=== PATIENT | male | born 1955 | race Caucasian/White ===

== ENCOUNTER 2018-05-08 07:43 | Emergency (ER) | payer OTHER ==
--- NOTE | 2018-05-08 07:48 | EDPHY ---
H & P Time Seen by Provider: 05/08/18 07:47 Constitutional: Initial Vital Signs Temperature (C) 36.5 C 05/08/18 07:49 Heart Rate 91 05/08/18 07:49 Respiratory Rate 18 05/08/18 07:49 Blood Pressure 125/71 H 05/08/18 07:49 O2 Sat (%) 96 05/08/18 07:49 O2 Delivery Mode Room Air Allergies/Adverse Reactions: Penicillins Allergy (Verified 05/08/18 07:55) Home Medications: Medication Instructions Recorded Anastrozole 05/08/18 Hydrochlorothiazide 12.5 mg PO 05/08/18 Lisinopril [Zestril 40 mg (*)] 40 mg PO DAILY 05/08/18 Medical Decision Making - Diagnostics Imaging: Discussed imaging studies w/ callisthenics instructor Radiologist, I viewed and interpreted images myself ED Course/Re-evaluation: CHIEF COMPLAINT: "I'm not feeling well" HISTORY OF PRESENT ILLNESS: The patient is a 63 y/o male arriving via EMS complaining of vague malaise for the last week or so. He is visiting from the [facility] and notes he has had minor intermittent headaches since arriving here. Around 02:00 this morning, 6 hours ago, he woke feeling lightheaded, weak "all over," and shaky "like my muscles don't have the strength to do what they need to do." He is reluctant to open his eyes during assessment and says he's tired but closing his eyes may help his [id number] dizziness and lightheadedness. He complains of an associated dry tongue and just generally feels "out of the ordinary." He denies fever, chills, dyspnea, cough, chest pain , chest pressure, abdominal pain, vomiting, diarrhea. Prehospital BGL was 215 and the patient denies eating this morning or any history of diabetes, though he is "on supplements to maintain my blood sugar level." No current flu vaccination. REVIEW OF SYSTEMS: A comprehensive 10 system review of systems is otherwise negative aside from elements mentioned in the history of present illness and medical decision making. PHYSICAL EXAM: HR, BP, O2 Sat, RR. Temp noted General Appearance: Alert, well hydrated, appropriate, and non-toxic appearing. Head: Atraumatic without scalp tenderness or obvious injury Eyes: Pupils equal, round, reactive to light and accommodation, EOMI, no trauma , no injection. Nose: Atraumatic, no rhinorrhea, clear. Throat: There is no erythema or exudates, no lesions, normal tonsils, mucus membranes moist. Neck: Supple, nontender, no lymphadenopathy. Respiratory: No retractions, no distress, no wheezes, and no accessory muscle use. Lungs are clear to auscultation bilaterally. Cardiovascular: Regular rate and rhythm, no murmurs, rubs, or gallops. Good capillary refill all extremities. Gastrointestinal: Abdomen is soft, nontender, non-distended, no masses, no rebound, no guarding, no peritoneal signs. Musculoskeletal: Normal active ROM of all extremities, atraumatic. Neurological: Alert, appropriate, and interactive. The patient has non-focal cranial nerves, motor, sensory, and cerebellar exam. Skin: No rashes, good turgor, no nodules on palpation. Past medical history: on supplements for BGL Past surgical history: noncontributory Family history: noncontributory Social history: From the [place] area. Is a army helicopter pilot and flew here. DIAGNOSTICS/PROCEDURES/CRITICAL CARE TIME: The 12 lead EKG was interpreted by myself. Sinus mechanism with left axis deviation. See hard copy and/or "tracemaster" electronic copy for interpretation. Brain MRI: negative for acute findings DIFFERENTIAL DIAGNOSIS: The differential diagnosis for the patient's symptoms included but was not limited to peripheral and central causes of vertigo, orthostatic causes including dehydration, cardiogenic and neurogenic causes, and blood loss. MEDICAL DECISION MAKING: This is a 63 y/o male who presents with a 1-week history of vague malaise that became more acute early this morning with lightheadedness, global weakness, and shakiness. He also describes some dizziness and is reluctant to open his eyes. Prehospital BGL was elevated at 215 and he denies history of diabetes though he is taking supplements to manage his BGL. Exam is nonfocal. Suspect vertigo or infection as most likely causes for his vague symptoms. Plan for IV, labs, EKG. WBC elevated at 13 with neutrophil shift, indicating likely infection. This could be causing his elevated BGL, which can also be contributing to his symptoms. He continues to feel poor on reassessment. Plan for 30mg IV Toradol, 4mg IV Zofran, 1L IV NS, 25mg PO Meclizine, and 10 unit insulin bolus. Reassessed patient. He feels improved, but still off. He says, "when I blink its brighter in the middle" and he feels he's "not my normal steady" when walking to the bathroom. Recommend brain MRI to further assess for cerebellar abnormality. Repeat BGL 123. Brain MRI is negative for acute findings. Flu swab negative. Reassessed patient and discussed findings. He appears much more comfortable than at initial presentation. I've not identified specifically what is causing his symptoms, but I suspect it's early signs of a viral illness. He feels comfortable being discharged at this time. Return precautions and follow up instructions discussed. - Data Points Laboratory Results: Laboratory Results 05/08/18 08:02 05/08/18 08:02 05/08/18 05/08/18 05/08/18 09:37 08:40 08:09 WBC RBC Hgb POC Hgb 16.7 gm/dL gm/dL (13.7-17.5) Hct POC Hct 49 % % (40-51) MCV MCH MCHC RDW Plt Count MPV Neut % (Auto) Lymph % (Auto) [place] % (Auto) Eos % (Auto) Baso % (Auto) Nucleat RBC Rel Count Absolute Neuts (auto) Absolute Lymphs (auto) Absolute Monos (auto) Absolute Eos (auto) Absolute Basos (auto) Absolute Nucleated RBC Immature Gran % Immature Gran # POC Sodium 143 mEq/L mEq/L (135-145) Sodium POC Potassium 3.4 mEq/L mEq/L (3.3-5.0) Potassium POC Chloride 104 mEq/L mEq/L (97-110) Chloride Carbon Dioxide Anion Gap POC BUN 23 mg/dL mg/dL (7-23) BUN Creatinine POC Creatinine 1.0 mg/dL mg/dL (0.7-1.3) Estimated GFR Glucose POC Glucose 123 mg/dL H mg/dL 197 mg/dL H mg/dL (70-100) (70-100) Calcium POC Troponin I Nasal Influenza A PCR NEGATIVE FOR FLU A (NEGATIVE) Nasal Influenza B PCR NEGATIVE FOR FLU B (NEGATIVE) 05/08/18 05/08/18 05/08/18 08:06 08:02 08:02 WBC 13.05 10^3/uL H 10^3/uL (3.80-9.50) RBC 5.22 10^6/uL 10^6/uL (4.40-6.38) Hgb 16.9 g/dL g/dL (13.7-17.5) POC Hgb Hct 46.4 % % (40.0-51.0) POC Hct MCV 88.9 fL fL (81.5-99.8) MCH 32.4 pg pg (27.9-34.1) MCHC 36.4 g/dL g/dL (32.4-36.7) RDW 13.5 % % (11.5-15.2) Plt Count 267 10^3/uL 10^3/uL (150-400) MPV 9.8 fL fL (8.7-11.7) Neut % (Auto) 88.5 % H % (39.3-74.2) Lymph % (Auto) 6.4 % L % (15.0-45.0) [place] % (Auto) 4.4 % L % (4.5-13.0) Eos % (Auto) 0.1 % L % (0.6-7.6) Baso % (Auto) 0.2 % L % (0.3-1.7) Nucleat RBC Rel Count 0.0 % % (0.0-0.2) Absolute Neuts (auto) 11.56 10^3/uL H 10^3/uL (1.70-6.50) Absolute Lymphs (auto) 0.83 10^3/uL L 10^3/uL (1.00-3.00) Absolute Monos (auto) 0.57 10^3/uL 10^3/uL (0.30-0.80) Absolute Eos (auto) 0.01 10^3/uL L 10^3/uL (0.03-0.40) Absolute Basos (auto) 0.03 10^3/uL 10^3/uL (0.02-0.10) Absolute Nucleated RBC 0.00 10^3/uL 10^3/uL (0-0.01) Immature Gran % 0.4 % % (0.0-1.1) Immature Gran # 0.05 10^3/uL 10^3/uL (0.00-0.10) POC Sodium Sodium 140 mEq/L mEq/L (135-145) POC Potassium Potassium 3.7 mEq/L mEq/L (3.3-5.0) POC Chloride Chloride 106 mEq/L mEq/L (97-110) Carbon Dioxide 22 mEq/l mEq/l (22-31) Anion Gap 12 mEq/L mEq/L (6-14) POC BUN BUN 24 mg/dL H mg/dL (7-23) Creatinine 0.9 mg/dL mg/dL (0.7-1.3) POC Creatinine Estimated GFR > 60 Glucose 195 mg/dL H mg/dL (70-100) POC Glucose Calcium 9.7 mg/dL mg/dL (8.5-10.4) POC Troponin I 0.03 ng/mL ng/mL (0.00-0.08) Nasal Influenza A PCR Nasal Influenza B PCR Medications Given: Discontinued Medications Sodium Chloride (Ns) 500 mls @ 0 mls/hr IV EDNOW ONE; Wide Open PRN Reason: Protocol Stop: 05/08/18 07:53 Last Admin: 05/08/18 08:03 Dose: 500 mls Sodium Chloride (Ns) 1,000 mls @ 0 mls/hr IV EDNOW ONE; Wide Open PRN Reason: Protocol Stop: 05/08/18 08:38 Last Admin: 05/08/18 08:45 Dose: 1,000 mls Insulin Human Regular (Humulin R) 10 unit SC EDNOW ONE Stop: 05/08/18 08:39 Last Admin: 05/08/18 08:52 Dose: 10 units Ketorolac Tromethamine (Toradol) 30 mg IVP EDNOW ONE Stop: 05/08/18 08:38 Last Admin: 05/08/18 08:46 Dose: 30 mg Meclizine HCl (Meclizine Hcl) 12.5 mg PO EDNOW ONE Stop: 05/08/18 08:38 Last Admin: 05/08/18 08:47 Dose: 12.5 mg Point of Care Test Results: Chemistry 05/08/18 05/08/18 05/08/18 09:37 08:09 08:06 POC Sodium 143 mEq/L mEq/L (135-145) POC Potassium 3.4 mEq/L mEq/L (3.3-5.0) POC Chloride 104 mEq/L mEq/L (97-110) POC BUN 23 mg/dL mg/dL (7-23) POC Creatinine 1.0 mg/dL mg/dL (0.7-1.3) POC Glucose 123 mg/dL H mg/dL 197 mg/dL H mg/dL (70-100) (70-100) POC Troponin I 0.03 ng/mL ng/mL (0.00-0.08) ISTAT H&H 05/08/18 08:09 POC Hgb 16.7 gm/dL gm/dL (13.7-17.5) POC Hct 49 % % (40-51) Departure - Departure Disposition: Home, Routine, Self-Care Clinical Impression: Blood glucose elevated, Lightheaded Condition: Good Instructions: Lightheadedness (ED), How to Check your Blood Sugar (ED) Additional Instructions: Follow up with your primary care provider upon your return home to recheck your elevated blood sugar level. It's possible it was elevated today due to illness, but you need to follow up with your PCP either way. Return to the ED for severe headache, weakness or numbness on one side of your body, uncontrollable vomiting, or other worsening of condition. Referrals: Elif Prieto MD [Medical Doctor] - As per Instructions Report Scribed for: Chandra Shannon Report Scribed by: Mira Montgomery Date of Report: 05/08/18 Time of Report: 07:58
[2018-05-08] MEDS ORDERED: NS 500 ML IV ONE (07:52)
[2018-05-08 08:13] LABS: PLATELET COUNT 267 10^3/uL (150-400)
[2018-05-08] MEDS ORDERED: KETOROLAC 30 MG/1 ML SDV IVP ONE (08:37)
[2018-05-08] MEDS ORDERED: NS 1,000 ML IV ONE (08:37)
[2018-05-08] MEDS ORDERED: MECLIZINE HCL 25 MG TAB PO ONE (08:37)
[2018-05-08] MEDS ORDERED: INSULIN REGULAR HUMAN 100 UNIT/ML UNIT SC ONE (08:38)
[2018-05-08 10:50] VITALS: BP 125/85
--- NOTE | 2018-05-09 13:09 | CPEKG ---
Test Reason : OPEN Blood Pressure : / mmHG Vent. Rate : 083 BPM Atrial Rate : 083 BPM P-R Int : 161 ms QRS Dur : 108 ms QT Int : 380 ms P-R-T Axes : 041 -43 017 degrees QTc Int : 447 ms Sinus rhythm Left axis deviation Confirmed by Chandra Shannon ([id number]) on 05/09/2018 1:09:11 PM Referred By: Confirmed By:Chandra Shannon
== END 2018-05-08 10:50 | disposition home or self-care (01) ==
DX: R42 Dizziness and giddiness (principal); R73.09 Other abnormal glucose; E86.9 Volume depletion, unspecified
CPT/HCPCS: 82435-PO; 82565-PO; 82947-PO; 84132-PO; 84295-PO; 84484-PO; 84520-PO; 85014-PO; 96374; J1815; J1885